=== PATIENT | female | born 1990 | race Caucasian/White ===

== ENCOUNTER 2023-10-09 12:42 | Emergency (ER) | payer SELFPAY ==
[2023-10-09 12:45] VITALS: BP 157/92
--- NOTE | 2023-10-09 13:31 | ED.GENMED ---
History of Present Illness
<Rakel Nj DIRECTOR CLINICAL RESEARCH - Last Filed: 10/10/23 18:05>
General
Chief Complaint: Breathing Problem
Source: patient
Exam Limitations: none
Time Seen by Provider: 10/09/23 12:58
Nursing documentation reviewed up to this point in time: agreed with
Travel History
Have you had any contact with someone who has COVID-19?: No
Do you have any symptoms of coronavirus? Fever > 100 degrees, chills, cough, shortness of breath, sore throat, loss of taste or smell, muscle aches, or headache?: No
History of Present Illness
History of Present Illness:
33 yo female w h/o asthma, seasonal allergies, 2 sinus infections in past 2 months, finished antibiotic that starts with 'C' one week ago.
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 Developed mid chest pain and nasal congestion around 11:30 today.
Took Advil 400 mg 7:30 a.m. for chest pain.
Denies n/v/d/abdominal pain
Not Covid or Flu vaccinated
Past History
<Rakel Nj DIRECTOR CLINICAL RESEARCH - Last Filed: 10/10/23 18:05>
Past History
ED Past Medical History: Asthma and Other (Significant seasonal allergies, frequent sinus infections)
ED Past Surgical History: None and Other (Hernia repair, wisdom teeth extraction)
Social History
Tobacco: Non-smoker
Alcohol: Occasional
Personal:
Living: with family
Employment: Employed
Review of Systems
<Rakel Nj DIRECTOR CLINICAL RESEARCH - Last Filed: 10/10/23 18:05>
Review of Systems
Allergies reviewed?: Yes
All Other Systems: ROS reviewed and negative except as documented in HPI and ROS
Constitutional: Denies fever
EENT: Reports other (Sinus congestion); Denies sore throat
Respiratory: Reports trouble breathing; Denies cough
Cardiac: Reports chest pain; Denies diaphoresis or palpitations
ABD/GI: Denies abdominal pain, nausea, vomiting or diarrhea
: Denies dysuria, frequency, difficulty voiding or urgency
Musculoskeletal: Reports no symptoms
Skin: Reports no symptoms
Neurological: Reports no symptoms
Phy Exam
<Rakel Nj, DIRECTOR CLINICAL RESEARCH - Last Filed: 10/10/23 18:05>
Physical Exam
Physical Exam:
GENERAL: No acute distress. A&Ox3.
CONSTITUTIONAL: Temperature 100.2
EYES: PERRL, conjunctivae normal
Neck: Supple
ENMT: moist mucus membranes, Pharynx nl, TMs normal
RESPIRATORY: Regular respirations, nonlabored, lungs clear with tubular breath sounds left lower demarco
CARDIOVASCULAR: Regular rate and rhythm, no murmurs, no rubs.
GI: Soft, nontender, normal BS
MUSCULOSKELETAL: Moves with ease. Well perfused.
SKIN: Warm, dry, pink
PSYCH: Normal mood and affect. Well kept, interactive and appropriate
NEUROLOGIC: Awake, alert and oriented. No focal neurological deficits
Course
<Rakel Nj, DIRECTOR CLINICAL RESEARCH - Last Filed: 10/10/23 18:05>
Orders/Labs/Results
Orders:
Orders
10/09/23 13:30
Acetaminophen [Tylenol] 1,000 mg PO NOW STA
10/09/23 13:31
0.9% Sodium Chloride 1000 ml [Nss] 1,000 ml IV BOLUS
CR Chest - 2 Views Urgent
Comment:
Reason For Exam: SOB, fever
10/09/23 13:44
C-Reactive Protein Urgent
Comment: ADD ON
COVID-19 Antigen Urgent
Source: Nasal Swab
Complete Blood Count/With Diff Urgent
Comprehensive Metabolic Panel Urgent
D-Dimer Urgent
Influenza A+B Rapid Molecular Urgent
JACK Source: Nasal Swab
Specimen Description:
10/09/23 17:00
Add On- LAB Urgent
Tests Added?: CRP
10/09/23 17:13
CT Chest With Iv Contrast Urgent
Comment:
Reason For Exam: chest pain, tachycardia, neg dimer, low grade feve
10/09/23 17:15
Electrocardiogram (*1) Urgent
Reason for Study: Chest Pain
EKG- Treatment ONCE
10/09/23 17:19
Lactate Level [Lactic Acid] Urgent
Blood Culture Q30M
JACK Source: Blood/Venous
Specimen Description:
Blood Culture Q30M
JACK Source: Blood/Venous
Specimen Description:
Abnormal Lab Results
10/09/23
13:44
WBC 11.6 H 10^3/uL
(4.8-10.8)
MCV 79.3 L fL
(81.0-99.0)
MCH 26.6 L pg
(27.0-31.0)
Abs Immat Gran (auto) 0.1 H 10^3/uL
(0-0.05)
Absolute Neuts (auto) 10.4 H 10^3/uL
(1.4-6.5)
Absolute Lymphs (auto) 0.5 L 10^3/uL
(1.2-3.4)
Absolute Monos (auto) 0.7 H 10^3/uL
(0.1-0.6)
Neutrophils % 89.6 H %
(42.2-75.2)
Lymphocytes % 4.0 L %
(20.5-51.1)
Sodium 132 L mmol/L
(135-145)
Carbon Dioxide 21 L mmol/L
(22-30)
C-Reactive Protein 47.50 H mg/L
(0.0-10.00)
10/09/23 13:44
10/09/23 13:44
Vital Signs
Initial and Last Documented VS:
Initial Vital Signs
Temp Pulse Resp BP Pulse Ox
98.7 F 129 20 157/92 100
10/09/23 12:45 10/09/23 12:45 10/09/23 12:45 10/09/23 12:45 10/09/23 12:45
Last Documented Vital Signs
Temp Pulse Resp BP Pulse Ox
99.3 F 120 20 118/74 99
10/09/23 16:41 10/09/23 19:33 10/09/23 19:33 10/09/23 19:33 10/09/23 19:33
Director Phone consulted with Physician
Director Phone consulted with physician?: Yes
Name of Physician Consulted: Ramy
<Sherman Mccann, DO - Last Filed: 10/09/23 21:22>
Orders/Labs/Results
Orders:
Orders
10/09/23 13:30
Acetaminophen [Tylenol] 1,000 mg PO NOW STA
10/09/23 13:31
0.9% Sodium Chloride 1000 ml [Nss] 1,000 ml IV BOLUS
CR Chest - 2 Views Urgent
Comment:
Reason For Exam: SOB, fever
10/09/23 13:44
C-Reactive Protein Urgent
Comment: ADD ON
COVID-19 Antigen Urgent
Source: Nasal Swab
Complete Blood Count/With Diff Urgent
Comprehensive Metabolic Panel Urgent
D-Dimer Urgent
Influenza A+B Rapid Molecular Urgent
JACK Source: Nasal Swab
Specimen Description:
10/09/23 17:00
Add On- LAB Urgent
Tests Added?: CRP
10/09/23 17:13
CT Chest With Iv Contrast Urgent
Comment:
Reason For Exam: chest pain, tachycardia, neg dimer, low grade feve
10/09/23 17:15
Electrocardiogram (*1) Urgent
Reason for Study: Chest Pain
EKG- Treatment ONCE
10/09/23 17:19
Lactate Level [Lactic Acid] Urgent
Blood Culture Q30M
JACK Source: Blood/Venous
Specimen Description:
Blood Culture Q30M
JACK Source: Blood/Venous
Specimen Description:
Abnormal Lab Results
10/09/23
13:44
WBC 11.6 H 10^3/uL
(4.8-10.8)
MCV 79.3 L fL
(81.0-99.0)
MCH 26.6 L pg
(27.0-31.0)
Abs Immat Gran (auto) 0.1 H 10^3/uL
(0-0.05)
Absolute Neuts (auto) 10.4 H 10^3/uL
(1.4-6.5)
Absolute Lymphs (auto) 0.5 L 10^3/uL
(1.2-3.4)
Absolute Monos (auto) 0.7 H 10^3/uL
(0.1-0.6)
Neutrophils % 89.6 H %
(42.2-75.2)
Lymphocytes % 4.0 L %
(20.5-51.1)
Sodium 132 L mmol/L
(135-145)
Carbon Dioxide 21 L mmol/L
(22-30)
C-Reactive Protein 47.50 H mg/L
(0.0-10.00)
10/09/23 13:44
10/09/23 13:44
Vital Signs
Initial and Last Documented VS:
Initial Vital Signs
Temp Pulse Resp BP Pulse Ox
98.7 F 129 20 157/92 100
10/09/23 12:45 10/09/23 12:45 10/09/23 12:45 10/09/23 12:45 10/09/23 12:45
Last Documented Vital Signs
Temp Pulse Resp BP Pulse Ox
99.3 F 120 20 118/74 99
10/09/23 16:41 10/09/23 19:33 10/09/23 19:33 10/09/23 19:33 10/09/23 19:33
<Rakel Nj NP - Last Filed: 10/10/23 18:05>
MDM/Problems Addressed
Differential Diagnosis Includes:
Covid, PNA, Flu, PE, Viral URI, pericarditis, pleuritis
MDM/Problems Addressed:
33 yo female w h/o asthma but hasn't needed her inhaler for 'years,' seasonal allergies, 2 sinus infections in past 2 months, finished antibiotic that starts with 'C' one week ago.
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 Developed mid chest pain and nasal congestion around 11:30 today.
Took Advil 400 mg 7:30 a.m. for chest pain.
Denies n/v/d/abdominal pain
Not Covid or Flu vaccinated
Temp 100.2 for this examiner, tachycardic
10/09/2023 1632 PM
CBC: Leukocytosis with WBC 11.6
CMP: No clinically significant abnormality
COVID test is negative
Influenza a and B test is negative
D-dimer within normal limits
Chest x-ray NAD
Pt temp 99.4, still with chest pain
After Tylenol and 1 L NSS IV still tachycardic at 125. Second Liter NSS hung.
Case discussed with Dr. Mccann, recommends blood cultures, lactic, CRP, chest CT
10/09/[address] radiology report read: IMPRESSION:
1. � Mild subsegmental atelectasis and scarring in the posterior and lateral basilar segments of the lower lobes of both lungs.
2. � Small solid sub-6 mm pulmonary nodules in the right middle lobe and right lower lobe which are probably infectious or inflammatory in etiology given the patient's age.
3. � Mild splenomegaly.
Toradol IV ordered for chest pain
Dr. Mccann will assume care from this point.
<Rakel Nj, DIRECTOR CLINICAL RESEARCH - Last Filed: 10/10/23 18:05>
*Critical Care Note
Total Time (30-74mins, 75-104mins- exclusive of procedures): Not Applicable
<Sherman Mccann, DO - Last Filed: 10/09/23 21:22>
Update Note
Update Note:
Lactate 0.9, C-reactive protein is elevated at 48, mild leukocytosis with white count of 11.6. We gave her 2 L of fluid and then Toradol. The patient's heart rate remains elevated on reassessment at 7 PM with heart rate of around 120. However she
feels improved. No clear indication for antibiotics at this time. I hear no murmur to suggest endocarditis. She denies history of IVDA. The symptoms seem to worsen when she leans forward and EKG does not show signs of pericarditis.
ED Attending Note
<Rakel Nj, DIRECTOR CLINICAL RESEARCH - Last Filed: 10/10/23 18:05>
-
Portions of this chart may have been created with voice recognition software.� Occasional wrong word or��sound alike� substitutions may have occurred due to the inherent limitations of voice recognition software.
<Sherman Mccann, DO - Last Filed: 10/09/23 21:22>
ED Attending Note
Patient seen and examined by attending physician: Yes
I performed the substantive portion of visit, reviewed & personally made and approve the management plan that is documented in note by myself or PRIMO.: Yes
I performed a history and physical exam of patient and discussed management with resident, I reviewed resident's note and agree with documented findings and plan of care.: Yes
ED Attending Note:
I evaluated the patient at bedside at 5:15 PM. The patient already received 2 L of fluid and still has heart rates in the 120s. She appears generally unwell. She has mild leukocytosis with 89% neutrophils. D-dimer was reassuring. She has
ongoing anterior chest discomfort.
Discharge Plan
Departure
Patient Disposition: Home (Routine Discharge)
Date of Disposition: 10/09/23
Time of Disposition: 19:09
Patient with high blood pressure during this ER visit?: Yes
Discharge Problem:
Acute viral syndrome
Instructions: Viral Syndrome (DC)
Referrals:
NONE,* [Family Provider] -
Activity Restrictions/Additional Instructions:
The cause of your symptoms is unclear. You likely have a viral syndrome. Your white blood cell count was slightly high at 11 point. Lactic acid level was normal. C-reactive protein which checks for inflammation is somewhat high at 47.5 but this
does not give a clear diagnosis of any 1 particular thing. COVID and flu testing were negative. The CAT scan of the chest showed some small nodules but this would not be the cause of your symptoms. The radiologist said that you had a 5.1 mm
nodule in the right lower lobe and a 4.4 mm nodule in the right middle lobe�follow-up with your primary care doctor. There is no clear sign of pneumonia on imaging studies. There is no sign of blood clot. Please follow-up your primary care
doctor. I recommend 3-4 [id number] ibuprofen (Motrin) every 8 hours with food for a few days. You can also take Tylenol along with the Motrin. Return here if worse.
Interventions
Interventions:
*Risk Screen - Suicide Last Done: 10/09/23 12:45
*General Assessment Last Done: 10/09/23 12:45
*Neglect/Abuse Screening Last Done: 10/09/23 13:07
ED- Fall Risk Assessment Last Done: 10/09/23 13:07
*ED COVID-19 Vaccine History Last Done: 10/09/23 12:45
*Nursing Disposition Last Done: 10/09/23 20:04
ED- Cardiac Assessment Last Done: 10/09/23 13:07
ED- Pulmonary Assessment Last Done: 10/09/23 13:07
Discharge Date and Time
Discharge Date/Time: 10/09/23 20:05
[2023-10-09] MEDS: TYLENOL 1000 MG PO (13:45)
[2023-10-09] MEDS: NSS 1000 IV (13:46)
[2023-10-09 14:23] LABS: % Basophils 0.3 % (0-2); % Eosinophils 0.1 % (0-6); % Immature Granulocytes 0.4 % (0-0.5); % Monocytes 5.6 % (1.7-9.3); % Neutrophils 89.6 % (42.2-75.2); Absolute Immature Granulocytes 0.1 10^3/uL (0-0.05); Absolute Lymphocytes 0.5 10^3/uL (1.2-3.4); Absolute Monocytes 0.7 10^3/uL (0.1-0.6); Absolute Neutrophils 10.4 10^3/uL (1.4-6.5); Hematocrit 37.9 % (37.0-47.0); Hemoglobin 12.7 g/dL (12.0-16.0); Mean Corp Hgb Conc. 33.5 g/dL (33.0-37.0); Mean Corpuscular Hgb 26.6 pg (27.0-31.0); Mean Corpuscular Volume 79.3 fL (81.0-99.0); Mean Platelet Volume 10.2 fL (7.4-10.4); Nucleated Red Blood Cells % 0 %; Platelet Count 195 10^3/uL (130-400); Red Blood Cell Count 4.78 10^6/uL (4.20-5.40); Red Cell Dist. Width 13.3 % (11.5-14.5); White Blood Cell Count 11.6 10^3/uL (4.8-10.8)
[2023-10-09 14:27] LABS: COVID-19 Antigen Negative (Negative)
[2023-10-09 14:35] LABS: D-Dimer < 0.27 ug/mlFEU (0.00-0.50)
[2023-10-09 14:40] LABS: ALT (SGPT) 16 U/L (0-35); AST (SGOT) 21 U/L (14-36); Albumin 4.5 g/dl (3.5-5.0); Alkaline Phosphatase 57 U/L (38-126); Blood Urea Nitrogen 14 mg/dl (7-17); Calcium 8.9 mg/dl (8.4-10.2); Carbon Dioxide 21 mmol/L (22-30); Chloride 105 mmol/L (98-107); Glucose 98 mg/dl (70-99); Potassium 3.6 mmol/L (3.5-5.1); Sodium 132 mmol/L (135-145); Total Bilirubin 0.7 mg/dl (0.2-1.3); Total Protein 7.4 g/dl (6.3-8.2); eGFR > 60.00
[2023-10-09 16:41] VITALS: BP 128/75
[2023-10-09 17:46] VITALS: BP 115/73
[2023-10-09 17:58] LABS: Lactic Acid 0.9 mmol/L (0.7-2.0)
[2023-10-09 19:33] VITALS: BP 118/74
== END 2023-10-09 20:05 | disposition home or self-care (01) ==
LOC: EMR 12:42
PROVIDERS: Registered Nurse; EMERGENCY PHYSICIAN Emergency Medicine
DX: B34.9 Viral infection, unspecified (principal); R07.89 Other chest pain; R06.02 Shortness of breath; R09.81 Nasal congestion; Z11.52 Encounter for screening for COVID-19; J45.909 Unspecified asthma, uncomplicated; Z91.048 Other nonmedicinal substance allergy status
CPT/HCPCS: 99285; 96360; 71046; 71260; 80053; 83605; 85025; 85379; 86140; 87040; 87502; 87811; 93005; Q9967